=== PATIENT | female | born 1950 | race Caucasian/White ===

== ENCOUNTER 2017-01-24 01:04 | Emergency (ER) | payer MEDICARE, OTHER ==
[~2017-01-24] VITALS: Ht 165.1 cm; Wt 75.0 kg
[2017-01-24 01:05] VITALS: BP 177/96; PULSE 73; RESP 16; O2SAT 99
[2017-01-24] MEDS ORDERED: AUGM875T3 PO (01:45)
[2017-01-24] MEDS ORDERED: LIDOCAINE 1%/EPINEPHrine 1:100,000 SOLN 20 ML VIAL INFIL ONE (01:45)
[2017-01-24] MEDS ORDERED: TETANUS/DIPHTHERIA TOXOID ADULT 0.5 ML VIAL IM ONE (01:45)
[2017-01-24] MEDS ORDERED: NORC5TAB PO (01:45)
--- NOTE | 2017-01-24 01:45 | PD ---
HPI Chief Complaint: Bite or Sting Time Seen by Provider: 01:30 Travel History International Travel<30 days: No Contact w/Intl Traveler<30days: No Traveled to known affect area: No History of Present Illness HPI 66-year-old female complains of facial lacerations from dog bites. Patient states that the dog is her own dog. Patient states that the dog had appropriate immunization. Patient states that the laceration and fall upper lip and lower lip. Patient denies any other problem. Patient states that she is not up-to-date with TD booster. PFSH Past Medical History Immunizations Current: Yes Tetanus Vaccination: Unknown Influenza Vaccination: Yes Social History Alcohol Use: Yes (socially) Tobacco Use: No Substance Use: No Allergies-Medications (Allergen,Severity, Reaction): Uncoded Allergies: CODEINE (Allergy, Unknown, 02/06/03) Reported Meds & Prescriptions Reported Meds & Active Scripts Active [place] (Hydrocodone-Acetaminophen) 5-325 mg Tab 1 Tab PO Q6H PRN Augmentin (Amoxicillin-Clavulanate) 875-125 Mg Tab 1 Tab PO BID Review of Systems General / Constitutional: No: Fever Eyes: No: Visual changes HENT: No: Headaches Cardiovascular: No: Chest Pain or Discomfort Respiratory: No: Shortness of Breath Gastrointestinal: No: Abdominal Pain Genitourinary: No: Dysuria Musculoskeletal: No: Pain Skin: No Rash Neurologic: No: Weakness Psychiatric: No: Depression Endocrine: No: Polydipsia Hematologic/Lymphatic: No: Easy Bruising Physical Exam Narrative GENERAL: Well-nourished, well-developed patient. SKIN: Focused skin assessment warm/dry. HEAD: Normocephalic. EYES: No scleral icterus. No injection or drainage. NECK: Supple, trachea midline. No JVD or lymphadenopathy. CARDIOVASCULAR: Regular rate and rhythm without murmurs, gallops, or rubs. RESPIRATORY: Breath sounds equal bilaterally. No accessory muscle use. GASTROINTESTINAL: Abdomen soft, non-tender, nondistended. MUSCULOSKELETAL: No cyanosis, or edema. BACK: Nontender without obvious deformity. No CVA tenderness. Patient had 3 lacerations involving the upper lip. Total laceration length about 8 cm. Patient has a 2 cm laceration lower lip involving the mucous membrane. The laceration does not cross the vermilion border. No through and through laceration. No active bleeding. Soft tissue swelling noted. Patient also has 1.5 cm laceration upper lip mucous membrane extended to the upper gum. Data Data Last Documented VS Vital Signs Date Time Temp Pulse Resp B/P (MAP) Pulse Ox O2 Delivery O2 Flow Rate FiO2 01/24/17 01:05 73 16 177/96 (123) 99 Room Air Orders Orders Lidocai-Epi 1%-1:100,000 Inj (Xylocaine- (01/24/17 01:45) Tetanus/Diphtheria Tox Adult (Tetanus/Di (01/24/17 01:45) MDM Medical Decision Making Medical Screen Exam Complete: Yes Emergency Medical Condition: Yes Differential Diagnosis Differential diagnosis including lacerations. Narrative Course 66-year-old female with facial lacerations from dog bites. TD booster given. Augmentin 875 mg one tablet by mouth given. Diagnosis Primary Impression: Facial laceration Qualified Codes: S01.81XA - Laceration without foreign body of other part of head, initial encounter Patient Instructions: General Instructions Additional Instructions: Wound care daily. Augmentin as directed. Hydrocodone as needed for pain. Follow-up with personal physician or return in 2 days or recheck. Suture removal in 7 days. Med/Other Pt SpecificInfo: Prescription(s) given Scripts Hydrocodone-Acetaminophen ([place]) 5-325 mg Tab 1 TAB PO Q6H Y for PAIN, #12 TAB 0 Refills Prov: Benjamin Panda MD 01/24/17 Amoxicillin-Clavulanate (Augmentin) 875-125 Mg Tab 1 TAB PO BID for Infection, #14 TAB 0 Refills Prov: Benjamin Panda MD 01/24/17 Disposition: 01 DISCHARGE HOME Condition: Stable Benjamin Panda MD Jan 24, 2017 01:45
--- NOTE | 2017-01-24 03:26 | PD ---
Physical Exam Date Seen by Provider: Jan 24, 2017 Time Seen by Provider: 02:26 Narrative Skin: Patient has multiple lacerations to the face secondary to dog bite. She has a laceration to the right cheek measuring 2 cm, right upper lip 2 cm, left upper lip 3.5 cm involving the vermilion border, lower lip wet vermilion 3.5 cm , right lower lip wet vermilion 1 cm Data Data Last Documented VS Vital Signs Date Time Temp Pulse Resp B/P (MAP) Pulse Ox O2 Delivery O2 Flow Rate FiO2 01/24/17 03:09 01/24/17 01:05 73 16 99 Room Air Orders Orders Lidocai-Epi 1%-1:100,000 Inj (Xylocaine- (01/24/17 01:45) Tetanus/Diphtheria Tox Adult (Tetanus/Di (01/24/17 01:45) MDM Medical Record Reviewed: Yes Supervised Visit with RAMEZ: Yes Differential Diagnosis MDM: High Differential diagnoses: Fracture, sprain, strain, dislocation, contusion, neurovascular injury Narrative Course Patient's lacerations are close to sutures. Patient is given Augmentin. Procedures Procedure Narrative LACERATION LOCATION: Right cheek LENGTH: 2 cm NUMBER OF STITCHES/LISSA: 6 REPAIR: The area of the laceration was prepped with Betadine and sterilely draped. The laceration was infiltrated with 1% lidocaine with epinephrine. The wound was copiously irrigated and explored without evidence of foreign body , tendon injury or neurovascular injury. The wound was closed using 6-0 proline. This was a simple single layer repair. A sterile dressing was applied. The patient was advised to keep the dressing clean and dry. Patient tolerated the procedure well. LACERATION LOCATION: Right upper lip LENGTH: 2 cm NUMBER OF STITCHES/LISSA: 6 REPAIR: The area of the laceration was prepped with Betadine and sterilely draped. The laceration was infiltrated with 1% lidocaine with epinephrine. The wound was copiously irrigated and explored without evidence of foreign body , tendon injury or neurovascular injury. The wound was closed using 6-0 proline. This was a simple single layer repair. A sterile dressing was applied. The patient was advised to keep the dressing clean and dry. Patient tolerated the procedure well. LACERATION LOCATION: Left upper lip involving the vermilion border LENGTH: 3.5 cm NUMBER OF STITCHES/LISSA: 10 REPAIR: The area of the laceration was prepped with Betadine and sterilely draped. The laceration was infiltrated with 1% lidocaine with epinephrine. The wound was copiously irrigated and explored without evidence of foreign body , tendon injury or neurovascular injury. The vermilion border is aligned. The wound was closed using 6-0 proline. This was a simple single layer repair. A sterile dressing was applied. The patient was advised to keep the dressing clean and dry. Patient tolerated the procedure well. LACERATION LOCATION: Mid lower wet vermilion LENGTH: 3.5 cm NUMBER OF STITCHES/LISSA: 8 REPAIR: The area of the laceration was prepped with Betadine and sterilely draped. The laceration was infiltrated with 1% lidocaine with epinephrine. The wound was copiously irrigated and explored without evidence of foreign body , tendon injury or neurovascular injury. The wound was closed using 5-0 Vicryl. This was a simple single layer repair. Patient tolerated the procedure well. LACERATION LOCATION: Right lower lip went vermilion LENGTH:1 cm NUMBER OF STITCHES/LISSA:2 REPAIR: The area of the laceration was prepped with Betadine and sterilely draped. The laceration was infiltrated with 1% lidocaine with epinephrine. The wound was copiously irrigated and explored without evidence of foreign body , tendon injury or neurovascular injury. The wound was closed using 5-0 Vicryl. This was a simple single layer repair Patient tolerated the procedure well. Diagnosis Primary Impression: Facial laceration Patient Instructions: General Instructions, Facial Laceration (ED) Departure Forms: Tests/Procedures Additional Instruction: Wound care daily. Augmentin as directed. Hydrocodone as needed for pain. Follow-up with personal physician or return in 2 days or recheck. Suture removal in 7 days. Rest. Ice pack tonight. Augmentin. Tylenol or Advil for pain. Daily wound care with soap, water, Neosporin. Sutures out in 5 days. Sunscreen and mederma for 6 months. Return to the ER for any problems. Med/Other Pt SpecificInfo: Prescription(s) given, Wound Care Scripts Hydrocodone-Acetaminophen ([place]) 5-325 mg Tab 1 TAB PO Q6H Y for PAIN, #12 TAB 0 Refills Prov: Benjamin Panda MD 01/24/17 Amoxicillin-Clavulanate (Augmentin) 875-125 Mg Tab 1 TAB PO BID for Infection, #14 TAB 0 Refills Prov: Benjamin Panda MD 01/24/17 Disposition: 01 DISCHARGE HOME Condition: Stable Ben Harper Jan 24, 2017 03:26
== END 2017-01-24 03:10 | disposition home or self-care (01) ==
LOC: NEPE 01:04
DX: S01.551A Open bite of lip, initial encounter (principal); W54.0XXA Bitten by dog, initial encounter; Z23 Encounter for immunization
CPT/HCPCS: 12011; 12015; 40652; 40654; 90471; 90714